=== PATIENT | male | born 1930 | race Caucasian/White ===

== ENCOUNTER 2018-05-23 17:11 | Emergency (ER) | payer MEDICARE ==
[~2018-05-23] VITALS: Ht 152.4 cm; Wt 56.7 kg
--- NOTE | 2018-05-23 17:16 | NUR ---
PEDRO OHARA AT BEDSIDE FOR MSE.
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
[2018-05-23] MEDS ORDERED: CLOP75TA15 PO (17:28)
[2018-05-23] MEDS ORDERED: HYDR-4075 PO (17:28)
[2018-05-23] MEDS ORDERED: DOXA4TAB2 PO (17:28)
[2018-05-23] MEDS ORDERED: CHOL200078 PO (17:28)
[2018-05-23] MEDS ORDERED: METO-357 PO (17:28)
[2018-05-23] MEDS ORDERED: ATOR80TA PO (17:28)
[2018-05-23] MEDS ORDERED: IBUPROFEN 400 MG TABLET PO ONE (17:30)
[2018-05-23] MEDS ORDERED: IBUPROFEN 400 MG TABLET ONE (17:40)
--- NOTE | 2018-05-23 17:41 | NUR ---
PT TAKEN TO RADIOLOGY FOR CT SCAN.
[2018-05-23 17:46] LABS: EOSINOPHILS # (AUTO) 0.3 K/uL (0.0-0.7); EOSINOPHILS % (AUTO) 6.6 % (0.0-7.0); HEMATOCRIT 35.2 % (36.7-47.1); HEMOGLOBIN 11.9 g/dL (12.5-16.3); LYMPHOCYTES % (AUTO) 21.1 % (20.5-51.5); MEAN CORPUSCULAR HEMOGLOBIN 30.2 uug (23.8-33.4); MEAN CORPUSCULAR HGB CONC 34 g/dL (32.5-36.3); MEAN CORPUSCULAR VOLUME 89.1 fL (73.0-96.2); MONOCYTES # (AUTO) 0.7 K/uL (2.0-10.0); MONOCYTES % (AUTO) 16.2 % (0.0-11.0); NEUTROPHILS # (AUTO) 2.5 K/uL (1.8-8.9); NEUTROPHILS % (AUTO) 55.1 % (38.5-71.5); PLATELET COUNT (AUTO) 161 K/uL (152-348); RED BLOOD CELL COUNT(AUTO) 3.95 MIL/uL (4.06-5.63); WHITE BLOOD COUNT (AUTO) 4.6 K/uL (3.6-10.2)
[2018-05-23 17:55] LABS: CARBON DIOXIDE 25 mmol/L (21-32); CHLORIDE 106 mmol/L (98-107); CREATININE 0.9 mg/dL (0.6-1.3); GLUCOSE 116 mg/dL (74-106); POTASSIUM 4.4 mmol/L (3.5-5.1); UREA NITROGEN, BLOOD 22 mg/dL (7-18)
[2018-05-23 18:00] LABS: ALANINE AMINOTRANSFERASE 23 U/L (16-63); ALKALINE PHOSPHATASE 81 U/L (50-136); ASPARTATE AMINOTRANSFERASE 28 U/L (15-37); BILIRUBIN,DIRECT 0.1 mg/dL (0.0-0.2); BILIRUBIN,TOTAL 0.6 mg/dL (0.2-1.0); TOTAL PROTEIN, SERUM 7.2 g/dL (6.4-8.2)
--- NOTE | 2018-05-23 18:09 | NUR ---
PT BACK IN ER FROM RADIOLOGY.
--- NOTE | 2018-05-23 18:10 | NUR ---
PEDRO OHARA SPEAKING W/ DR. CASTILLO, RADIOLOGIST, ON THE PHONE.
[2018-05-23 18:17] LABS: BAND % (MANUAL) 2 % (0-10); EOSINOPHILS % (MANUAL) 6 % (0-8); LYMPHOCYTES % (MANUAL) 21 % (20-40); MONOCYTES % (MANUAL) 17 % (2-10); NEUTROPHILS % (MANUAL) 54 % (42-75)
--- NOTE | 2018-05-23 19:16 | NUR ---
SHIFT REPORT GIVEN TO WILTON ALMAGUER.
--- NOTE | 2018-05-23 19:27 | NUR ---
IV removed. Catheter intact and site benign. Pressure and 4x4 gauze applied to site. No bleeding noted.
--- NOTE | 2018-05-23 19:30 | NUR ---
Pt ambulated steadily to restroom. No acute distress noted. Family members at bedside.
--- NOTE | 2018-05-23 19:41 | NUR ---
Patient discharged to home in stable conditon. Written and verbal after care instructions given. Patient verbalizes understanding of instructions. Pt left ER in steady gait with family members. All belongings with pt. VSS. NAD noted.
[2018-05-23 19:43] VITALS: BP 147/97
== END 2018-05-23 19:43 | disposition home or self-care (01) ==
LOC: ER 17:13 → EDBD 17:13 → ER 19:43
DX: S02.2XXA Fracture of nasal bones, initial encounter for closed fracture (principal); S62.525A Nondisplaced fracture of distal phalanx of left thumb, initial encounter for closed fracture; S60.512A Abrasion of left hand, initial encounter; S60.511A Abrasion of right hand, initial encounter; S80.212A Abrasion, left knee, initial encounter; Z79.01 Long term (current) use of anticoagulants; Z79.899 Other long term (current) drug therapy; W01.0XXA Fall on same level from slipping, tripping and stumbling without subsequent striking against object, initial encounter; Y93.89 Activity, other specified; Y92.89 Other specified places as the place of occurrence of the external cause; Y99.8 Other external cause status
CPT/HCPCS: 36415; 70450; 70486; 72125; 73130; 85025; 85730; 93005; A4663

== ENCOUNTER 2018-06-02 12:34 | Emergency (ER) | payer MEDICARE ==
[~2018-06-02] VITALS: Ht 152.4 cm; Wt 56.2 kg
[~2018-06-02 12:34] MED LIST: ATOR80TA PO; CHOL200078 PO; CLOP75TA15 PO; DOXA4TAB2 PO; HYDR-4075 PO; METO-357 PO
[2018-06-02] MEDS ORDERED: ALBUTEROL SULFATE 2.5 MG/3 ML NEBU NEB ONE (13:00)
[2018-06-02] MEDS ORDERED: IPRATROPIUM BROMIDE 0.5 MG/2.5 ML NEBU NEB ONE (13:00)
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
--- NOTE | 2018-06-02 13:13 | NUR ---
RT AT BEDSIDE.
--- NOTE | 2018-06-02 13:34 | NUR ---
PT RECEIVING BREATHING TX.
[2018-06-02 13:35] VITALS: BP 140/66
== END 2018-06-02 14:19 | disposition home or self-care (01) ==
LOC: ER 12:34
DX: J18.9 Pneumonia, unspecified organism (principal); S02.2XXD Fracture of nasal bones, subsequent encounter for fracture with routine healing; S62.509D Fracture of unspecified phalanx of unspecified thumb, subsequent encounter for fracture with routine healing; Z79.899 Other long term (current) drug therapy; Z79.01 Long term (current) use of anticoagulants; W01.0XXD Fall on same level from slipping, tripping and stumbling without subsequent striking against object, subsequent encounter
CPT/HCPCS: 71045; 93005; A4663; J3590

== ENCOUNTER 2018-06-04 12:47 | Inpatient (IN) | payer MEDICARE ==
[~2018-06-04] VITALS: Ht 152.4 cm; Wt 53.5 kg
--- NOTE | 2018-06-04 13:01 | NUR ---
PT A/OX4, STATES HE HAS BEEN SEEN IN THIS ER SEVERAL TIMES IN THE LAST WEEK AND WAS DIAGNOSED W/ ACUTE BRONCHITIS AND PRESCRIBED LEVAQUIN. PT REPORTS "SIDE EFFECTS FROM LEVAQUIN" - LOSS OF APPETITE AND FATIGUE - AND REQUESTS "A DIFFERENT KIND OF ANTIBIOTIC". VSS. PT DOES NOT APPEAR TO BE IN ANY APPARENT DISTRESS AT THIS TIME.
[2018-06-04 13:40] LABS: BASOPHILS % (AUTO) 0.4 % (0.0-2.0); EOSINOPHILS % (AUTO) 0.6 % (0.0-7.0); HEMATOCRIT 33.5 % (36.7-47.1); HEMOGLOBIN 11.2 g/dL (12.5-16.3); LYMPHOCYTES # (AUTO) 0.7 K/uL (20.0-40.0); MEAN CORPUSCULAR HEMOGLOBIN 29.8 uug (23.8-33.4); MEAN CORPUSCULAR HGB CONC 34 g/dL (32.5-36.3); MONOCYTES # (AUTO) 1.1 K/uL (2.0-10.0); MONOCYTES % (AUTO) 14.4 % (0.0-11.0); NEUTROPHILS # (AUTO) 5.5 K/uL (1.8-8.9); NEUTROPHILS % (AUTO) 75.6 % (38.5-71.5); PLATELET COUNT (AUTO) 183 K/uL (152-348); RED BLOOD CELL COUNT(AUTO) 3.76 MIL/uL (4.06-5.63); WHITE BLOOD COUNT (AUTO) 7.3 K/uL (3.6-10.2)
[2018-06-04 13:56] LABS: CARBON DIOXIDE 25 mmol/L (21-32); CHLORIDE 99 mmol/L (98-107); GLUCOSE 115 mg/dL (74-106); POTASSIUM 4.2 mmol/L (3.5-5.1); UREA NITROGEN, BLOOD 18 mg/dL (7-18)
[2018-06-04 14:01] LABS: ALANINE AMINOTRANSFERASE 18 U/L (16-63); ALKALINE PHOSPHATASE 95 U/L (50-136); ASPARTATE AMINOTRANSFERASE 26 U/L (15-37); BILIRUBIN,DIRECT 0.2 mg/dL (0.0-0.2); BILIRUBIN,TOTAL 0.6 mg/dL (0.2-1.0); TOTAL PROTEIN, SERUM 7.4 g/dL (6.4-8.2)
--- NOTE | 2018-06-04 15:45 | NUR ---
PAGED [facility] FOR PANEL CALL. ATTEMPT 1.
--- NOTE | 2018-06-04 16:25 | NUR ---
PT WILL BE ADMITTED TO TELE UNDER CARE OF DR. RIGGS.
--- NOTE | 2018-06-04 16:30 | NUR ---
UTE REPORT GIVEN TO NICK NÚÑEZ.
--- NOTE | 2018-06-04 16:32 | NUR ---
Pt. admitted to TELE 318, under care of Dr. RIGGS. Belongs List completed
[2018-06-04 17:52] VITALS: BP 143/57
--- NOTE | 2018-06-04 19:17 | NUR ---
received patient from ER via yari rueda with NSTEMI , on monitoring manager, patient on 2lpm oxygen, IV 20 gauge on the right forearm. ambulatory and continent , alert and oriented x4. will continue to monitor. continue plan of care. Addendum: 06/04/18 at 1920 by SCOT NOBLE RN for 170
--- NOTE | 2018-06-04 19:20 | NUR ---
Received patient lying in bed. AAOX4. In no acute distress. Denies any pain or SOB. Family at bedside. IV site on right FA intact and patent. Needs assessed and attended to. Safety measure initiated and call stewart within reach
[2018-06-04] MEDS ORDERED: ONDANSETRON 4 MG/2 ML VIAL IV PRN (20:00)
[2018-06-04] MEDS ORDERED: MAGNESIUM HYDROXIDE 30 ML LIQUID UDC PO PRN (20:00)
[2018-06-04] MEDS ORDERED: HYDROCODONE/APAP 5-325MG TABLET PO PRN (20:00)
[2018-06-04] MEDS ORDERED: ACETAMINOPHEN 325 MG TABLET PO PRN (20:00)
[2018-06-04 20:31] VITALS: BP 164/54
[2018-06-04] MEDS: DOCUSATE SODIUM 100 MG CAPSULE PO SCH (20:45)
[2018-06-04] MEDS: ASPIRIN EC 81 MG TABLET.DR PO SCH (20:45)
[2018-06-04] MEDS: ATORVASTATIN 40 MG TABLET PO SCH (20:45)
[2018-06-04] MEDS: DOXAZOSIN 2 MG TABLET PO SCH (20:46)
[2018-06-04] MEDS ORDERED: DOXAZOSIN MESYLATE PO SCH (21:00)
[2018-06-04] MEDS ORDERED: Medication Not On Formulary EA (Atorvastatin Calcium (Lipitor) 80 MG) PO SCH (21:00)
[2018-06-04] MEDS ORDERED: LEVOFLOXACIN 500 MG/D5W 100 ML ONE (21:56)
[2018-06-04] MEDS ORDERED: LEVOFLOXACIN 500 MG/D5W 500 MG in PREMIXED 1 EACH IV ONE (22:00)
[2018-06-04] MEDS ORDERED: RIVAROXABAN 10 MG TABLET PO ONE (22:00)
--- NOTE | 2018-06-04 22:32 | NUR ---
Informed patient regarding new order for Levaquin IV. Patient refused and stated he spoke to Dr. Wheeler about this medication and that he did not like the side effect of it. Informed Dr. Wheeler, awaiting for reply.
[2018-06-04] MEDS ORDERED: RIVAROXABAN 10 MG TABLET ONE (23:00)
[2018-06-04] MEDS ORDERED: AZITHROMYCIN 500 MG VIAL IV ONE (23:39)
[2018-06-04] MEDS ORDERED: CEFTRIAXONE 1 G VIAL ONE (23:40)
[2018-06-04] MEDS: CEFTRIAXONE 1 G in IV DEXTROSE 5% 50 ML IV SCH (23:55)
[2018-06-05] VITALS: BP 150/54
[2018-06-05] MEDS: IPRATROPIUM BROMIDE 0.5 MG/2.5 ML NEBU NEB PRN ×2 (00:10→19:48)
[2018-06-05] MEDS: ALBUTEROL SULFATE 2.5 MG/3 ML NEBU NEB PRN ×2 (00:10→19:49)
[2018-06-05] MEDS: AZITHROMYCIN IV 500 MG in IV DEXTROSE 5% 250 ML IV SCH ×2 (01:00→23:44)
[2018-06-05 04:00] VITALS: BP 140/35
--- NOTE | 2018-06-05 04:00 | NUR ---
Patient IV line accidentally got pulled out when patient went to the restroom. Started new IV line on right FA # 22gauge.
[2018-06-05] MEDS: GUAIFENESIN/CODEINE 5 ML LIQUID UDC PO PRN ×2 (04:10→20:52)
--- NOTE | 2018-06-05 06:18 | NUR ---
AAOX4. In no acute distress. Denies any pain or SOB. On O2 at 2 LPM via NC in place. O2 sat at 95%. Occasional non-productive cough noted. Cough medication given per order. NSR on tele at 75/min. Had 6 beats of V tach at 0500. IV site on right FA intact and patent. No adverse reaction noted from IV ABX. Needs assessed and attended to. Safety measure maintained and call stewart within reach
[2018-06-05] MEDS: PANTOPRAZOLE SODIUM 40 MG TABLET.DR PO SCH (06:26)
[2018-06-05 06:36] LABS: BASOPHILS % (AUTO) 0.3 % (0.0-2.0); EOSINOPHILS % (AUTO) 0.7 % (0.0-7.0); HEMATOCRIT 31.9 % (36.7-47.1); HEMOGLOBIN 10.8 g/dL (12.5-16.3); LYMPHOCYTES # (AUTO) 0.5 K/uL (20.0-40.0); LYMPHOCYTES % (AUTO) 9.2 % (20.5-51.5); MEAN CORPUSCULAR HEMOGLOBIN 29.6 uug (23.8-33.4); MEAN CORPUSCULAR HGB CONC 34 g/dL (32.5-36.3); MEAN CORPUSCULAR VOLUME 87.6 fL (73.0-96.2); MONOCYTES # (AUTO) 0.9 K/uL (2.0-10.0); MONOCYTES % (AUTO) 15.5 % (0.0-11.0); NEUTROPHILS # (AUTO) 4.1 K/uL (1.8-8.9); NEUTROPHILS % (AUTO) 74.3 % (38.5-71.5); PLATELET COUNT (AUTO) 190 K/uL (152-348); RED BLOOD CELL COUNT(AUTO) 3.64 MIL/uL (4.06-5.63); WHITE BLOOD COUNT (AUTO) 5.5 K/uL (3.6-10.2)
[2018-06-05 07:02] LABS: ALANINE AMINOTRANSFERASE 17 U/L (16-63); ALKALINE PHOSPHATASE 88 U/L (50-136); ASPARTATE AMINOTRANSFERASE 26 U/L (15-37); BILIRUBIN,TOTAL 0.6 mg/dL (0.2-1.0); CARBON DIOXIDE 27 mmol/L (21-32); CHLORIDE 99 mmol/L (98-107); CREATININE 0.8 mg/dL (0.6-1.3); GLUCOSE 105 mg/dL (74-106); IRON, SERUM 17 ug/dL (50-175); MAGNESIUM 1.8 mg/dL (1.8-2.4); PHOSPHOROUS 2.7 mg/dL (2.5-4.9); POTASSIUM 3.9 mmol/L (3.5-5.1); THYROID STIMULATING HORMONE 1.265 mIU/mL (0.358-3.740); TOTAL PROTEIN, SERUM 7.1 g/dL (6.4-8.2); UREA NITROGEN, BLOOD 14 mg/dL (7-18)
[2018-06-05 07:12] LABS: MONOCYTES % (MANUAL) 15 % (2-10); NEUTROPHILS % (MANUAL) 76 % (42-75)
[2018-06-05 07:13] LABS: BAND % (MANUAL) 0 % (0-10); EOSINOPHILS % (MANUAL) 1 % (0-8); LYMPHOCYTES % (MANUAL) 8 % (20-40)
[2018-06-05 07:20] LABS: CHOLESTEROL 136 mg/dL (<200); HDL CHOLESTEROL 57 mg/dL (40-60); TRIGLYCERIDES 39 MG/DL (30-150)
[2018-06-05] MEDS ORDERED: METOPROLOL SUCCINATE XL 50 MG TAB.SR.24H PO SCH (09:00)
[2018-06-05] MEDS: FLUTICASONE/VILANTEROL 1 EACH BLST.W.DEV INH SCH (09:45)
[2018-06-05] MEDS: CLOPIDOGREL 75 MG TABLET PO SCH (09:45)
[2018-06-05] MEDS: ASPIRIN EC 81 MG TABLET.DR PO SCH (09:45)
[2018-06-05] MEDS: CHOLECALCIFEROL 1,000 UNIT TABLET PO SCH (09:45)
[2018-06-05] MEDS: FUROSEMIDE 20 MG/2 ML VIAL IV SCH (10:04)
[2018-06-05] MEDS: methylPREDNISolone SOD SUCC 40 MG/ML VIAL IV SCH ×3 (10:09→21:00)
[2018-06-05 11:27] VITALS: BP 141/42
--- NOTE | 2018-06-05 13:48 | NUR ---
Pt received this morning resting in bed. AAOx4. Pt assessed, NAD, no SOB on 2 L NC, denies pain. Occasional productive cough noted. Pt compliant with all routine medication and nursing care provided. SR on Telemetry of 69, new order received to D/C tele monitor done. Family visited, concerns addressed. Bed in locked and lowest position. All safety and comfort measures in place. Call light and personal items within reach. Will continue to monitor.
[2018-06-05 15:27] VITALS: BP 116/50
[2018-06-05] MEDS ORDERED: RIVAROXABAN 10 MG TABLET PO SCH (18:00)
--- NOTE | 2018-06-05 19:10 | NUR ---
Received patient lying in bed. AAOX4. In no acute distress. O2 at 2LPM via NC in place. O2 sat at 96%. Denies any pain or SOB. Noted with occasional non-productive cough. IV site on right FA intact and patent. Needs assessed and attended to. Safety measure initiated and call stewart within reach
[2018-06-05] MEDS: CULTURELLE CAPSULE PO SCH (20:37)
[2018-06-05] MEDS: ATORVASTATIN 40 MG TABLET PO SCH (20:37)
[2018-06-05] MEDS: DOCUSATE SODIUM 100 MG CAPSULE PO SCH (20:37)
[2018-06-05] MEDS: DOXAZOSIN 2 MG TABLET PO SCH (20:38)
[2018-06-05 20:50] VITALS: BP 143/64
[2018-06-05] MEDS ORDERED: LEVOFLOXACIN 250MG /D5W 250 MG in PREMIXED 1 EACH IV SCH (22:00)
[2018-06-05] MEDS: CEFTRIAXONE 1 G in IV DEXTROSE 5% 50 ML IV SCH (23:02)
[2018-06-06] MEDS: IPRATROPIUM BROMIDE 0.5 MG/2.5 ML NEBU NEB PRN ×3 (04:59→20:41)
[2018-06-06] MEDS: ALBUTEROL SULFATE 2.5 MG/3 ML NEBU NEB PRN ×3 (05:00→20:42)
[2018-06-06] MEDS: methylPREDNISolone SOD SUCC 40 MG/ML VIAL IV SCH ×3 (05:43→21:14)
[2018-06-06] MEDS: PANTOPRAZOLE SODIUM 40 MG TABLET.DR PO SCH (06:07)
--- NOTE | 2018-06-06 06:07 | NUR ---
AAOX4. In no acute distress. O2 at 2LPM via NC in place. Denies any pain or SOB. Occasional non-productive cough. IV site on right FA intact and patent. No adverse effect noted from IV ABX. Needs assessed and attended to. Safety measure maintained and call stewart within reach
[2018-06-06 06:40] LABS: HEMATOCRIT 33.7 % (36.7-47.1); HEMOGLOBIN 11.5 g/dL (12.5-16.3); LYMPHOCYTES # (AUTO) 0.6 K/uL (20.0-40.0); LYMPHOCYTES % (AUTO) 9.4 % (20.5-51.5); MEAN CORPUSCULAR HEMOGLOBIN 30.1 uug (23.8-33.4); MEAN CORPUSCULAR HGB CONC 34 g/dL (32.5-36.3); MEAN CORPUSCULAR VOLUME 87.9 fL (73.0-96.2); MONOCYTES # (AUTO) 0.5 K/uL (2.0-10.0); MONOCYTES % (AUTO) 8.7 % (0.0-11.0); NEUTROPHILS # (AUTO) 4.9 K/uL (1.8-8.9); NEUTROPHILS % (AUTO) 81.9 % (38.5-71.5); PLATELET COUNT (AUTO) 227 K/uL (152-348); RED BLOOD CELL COUNT(AUTO) 3.84 MIL/uL (4.06-5.63)
[2018-06-06 06:56] LABS: CARBON DIOXIDE 27 mmol/L (21-32); CHLORIDE 97 mmol/L (98-107); GLUCOSE 163 mg/dL (74-106); MAGNESIUM 1.6 mg/dL (1.8-2.4); PHOSPHOROUS 3.5 mg/dL (2.5-4.9); POTASSIUM 3.9 mmol/L (3.5-5.1); UREA NITROGEN, BLOOD 21 mg/dL (7-18)
--- NOTE | 2018-06-06 07:30 | NUR ---
Patient in bed resting comfortably with no acute distress ,no c/o pain or SOB noted. O2 at 2LPM via NC in place. IV site on right forearm and is intact and patent. provide safety and continue to monitor. call light within reach.
[2018-06-06] MEDS: FLUTICASONE/VILANTEROL 1 EACH BLST.W.DEV INH SCH (08:28)
[2018-06-06] MEDS: CHOLECALCIFEROL 1,000 UNIT TABLET PO SCH (08:28)
[2018-06-06] MEDS: CULTURELLE CAPSULE PO SCH ×2 (08:28→20:21)
[2018-06-06] MEDS: FUROSEMIDE 20 MG/2 ML VIAL IV SCH (08:28)
[2018-06-06] MEDS: CLOPIDOGREL 75 MG TABLET PO SCH (09:11)
[2018-06-06] MEDS: GUAIFENESIN/CODEINE 5 ML LIQUID UDC PO PRN ×2 (10:37→20:30)
[2018-06-06] MEDS: MAGNESIUM SULFATE/D5W 100 ML IV SCH ×2 (11:11→12:13)
[2018-06-06 11:45] VITALS: BP 139/63
[2018-06-06 15:31] VITALS: BP 136/59
--- NOTE | 2018-06-06 18:35 | NUR ---
Patient in bed resting comfortably with no acute distress ,no c/o pain or SOB noted. O2 at 2LPM via NC in place. IV site on right forearm and is intact and patent. provide safety and continue to monitor. call light within reach. continue care with the awake overnight monitor nurse
--- NOTE | 2018-06-06 19:20 | NUR ---
Received patient lying in bed. AAOX4. In no acute distress. O2 at 2LPM via NC in place. O2 sat at 98%. Denies any pain or SOB. Noted with occasional non-productive cough. IV site on right FA intact and patent. Needs assessed and attended to. Safety measure initiated and call stewart within reach
[2018-06-06 20:06] VITALS: BP 137/62
[2018-06-06] MEDS: DOCUSATE SODIUM 100 MG CAPSULE PO SCH (20:21)
[2018-06-06] MEDS: ATORVASTATIN 40 MG TABLET PO SCH (20:22)
[2018-06-06] MEDS: DOXAZOSIN 2 MG TABLET PO SCH (20:22)
[2018-06-06] MEDS: CEFTRIAXONE 1 G in IV DEXTROSE 5% 50 ML IV SCH (23:23)
[2018-06-07] MEDS: AZITHROMYCIN IV 500 MG in IV DEXTROSE 5% 250 ML IV SCH (00:14)
[2018-06-07 04:10] VITALS: BP 123/57
[2018-06-07] MEDS: methylPREDNISolone SOD SUCC 40 MG/ML VIAL IV SCH ×2 (05:18→14:08)
[2018-06-07] MEDS: PANTOPRAZOLE SODIUM 40 MG TABLET.DR PO SCH (06:11)
--- NOTE | 2018-06-07 06:25 | NUR ---
AAOX4. In no acute distress. O2 at 2LPM via NC in place. Denies any pain or SOB. Less coughing noted. IV site on right FA intact and patent. No adverse effect noted from IV ABX. Needs assessed and attended to. Safety measure maintained and call stewart within reach.
[2018-06-07 07:09] LABS: CARBON DIOXIDE 29 mmol/L (21-32); CHLORIDE 99 mmol/L (98-107); CREATININE 0.8 mg/dL (0.6-1.3); GLUCOSE 158 mg/dL (74-106); MAGNESIUM 2.7 mg/dL (1.8-2.4); POTASSIUM 4.6 mmol/L (3.5-5.1); UREA NITROGEN, BLOOD 24 mg/dL (7-18)
[2018-06-07] MEDS: CULTURELLE CAPSULE PO SCH (09:09)
[2018-06-07] MEDS: CLOPIDOGREL 75 MG TABLET PO SCH (09:09)
[2018-06-07] MEDS: CHOLECALCIFEROL 1,000 UNIT TABLET PO SCH (09:09)
[2018-06-07] MEDS: FLUTICASONE/VILANTEROL 1 EACH BLST.W.DEV INH SCH (09:47)
[2018-06-07 11:00] VITALS: BP 149/56
--- NOTE | 2018-06-07 14:45 | NUR ---
Patient was given discharge instructions, iv removed, and prescription given to patient. No follow up appointment made on patients request. ID band cut off and daughter picked patient up to be taken home.
== END 2018-06-07 14:45 | disposition home or self-care (01) | DRG 190 ==
LOC: ER 12:47 → TELE3 16:40 → MEDSURG3 06-05 13:45
PROVIDERS: ADMIT Internal Medicine; ATTEND Internal Medicine
DX: J44.1 Chronic obstructive pulmonary disease with (acute) exacerbation (principal); I50.33 Acute on chronic diastolic (congestive) heart failure; I21.A1 Myocardial infarction type 2; D68.59 Other primary thrombophilia; J98.11 Atelectasis; J44.0 Chronic obstructive pulmonary disease with (acute) lower respiratory infection; B96.89 Other specified bacterial agents as the cause of diseases classified elsewhere; J20.9 Acute bronchitis, unspecified; I11.0 Hypertensive heart disease with heart failure; E78.5 Hyperlipidemia, unspecified; I25.10 Atherosclerotic heart disease of native coronary artery without angina pectoris; Z95.1 Presence of aortocoronary bypass graft; Z95.828 Presence of other vascular implants and grafts; S59.201D Unspecified physeal fracture of lower end of radius, right arm, subsequent encounter for fracture with routine healing; S52.611D Displaced fracture of right ulna styloid process, subsequent encounter for closed fracture with routine healing; S02.2XXD Fracture of nasal bones, subsequent encounter for fracture with routine healing; W19.XXXD Unspecified fall, subsequent encounter; Z96.651 Presence of right artificial knee joint; Z98.42 Cataract extraction status, left eye; Z98.41 Cataract extraction status, right eye; Z79.899 Other long term (current) drug therapy; Z79.02 Long term (current) use of antithrombotics/antiplatelets; F17.210 Nicotine dependence, cigarettes, uncomplicated; E04.1 Nontoxic single thyroid nodule; M85.80 Other specified disorders of bone density and structure, unspecified site; M75.01 Adhesive capsulitis of right shoulder; Z86.73 Personal history of transient ischemic attack (TIA), and cerebral infarction without residual deficits; N40.0 Benign prostatic hyperplasia without lower urinary tract symptoms
CPT/HCPCS: 36415; 70030-TC; 71045; 73120; 83550; 83735; 84100; 84443; 85025; 85730; 93005; 93307; 94640; 94664; 97110; 97116; 97165; 97530; A4663; G0378; J0456; J0696; J1940; J1956; J2920; J3475; J3590; J7050; J7060